=== PATIENT | female | born 1980 | race Caucasian/White ===

== ENCOUNTER → 2016-09-03 12:12 | Outpatient (CLI) | payer OTHER, SELFPAY ==
--- NOTE | 2017-09-04 | FLU_PTH ---
PATIENT: LORI RESENDIZ LOC: [facility] U#:[id number] AGE/SX: 45/F ROOM: RE09/03/[address]: Dr. Radha Hill MD : 1980 BED: DIS: SPEC #: [id number] RECD: 09/04/17 14:22 STATUS: AUDELIA BAHMAN #: [id number] JULIAN: 09/04/17 00:[address]: Radha Hill DEPT: CYTOLOGY RECD BY: Gene Rich ENTERED: 09/04/17 14:23 SP TYPE: Fluid OTHR DR: Dr. Richie Dhaliwal DO Tissues: A - Axillary lymph node, NOS B - Axillary lymph node, NOS Procedures: Pap Stain (control) Special Stain Group II Special Stain Group I Surgery Specimen Level IV AFB Stain (control) GMS Stain (control) Cell Block Cytospin Fluid HEADER OPERATION: Ultrasound-guided FNA, left axillary lymph node PRE-OP DIAGNOSIS: Abnormal mammogram TISSUE SUBMITTED: A - FNA, left axillary lymph node, fluid for cytology, B ? 4 slides DIAGNOSIS CYTOLOGY A. Left axillary lymph node, fluid, FNA (cytospin and cell block): Lymph node tissue with focal non-necrotizing granuloma formation. Special stains for acid fast bacilli and fungi are negative for organisms; matched controls are appropriate. B. Left axillary lymph node, ultrasound-guided FNA (smears): Polymorphous population of lymphocytes with focal area of non-necrotizing granuloma formation. See comment. SJ:rg 09/05/17 COMMENT B. Clinical correlation and appropriate follow up are necessary. CYTOLOGY STUDY Slides are reviewed. CYTOLOGY GROSS A. Received is 15 ml of brown, cloudy fluid labeled with the patient's name and and designated per the requisition as left axillary lymph node. Submitted for cytology preparation including cell block. B. Received are four smears labeled with the patient's name and designated per the requisition as left axillary lymph node. Submitted for staining. / 09/04/17 TC:3 CPT: 10940, 72799, 03908, 23024 x2
== END ==
PROVIDERS: Family Provider Student in an Organized Health Care Education/Training Program; PCP Student in an Organized Health Care Education/Training Program; Visit Provider Surgery
DX: R69 Illness, unspecified (principal)
CPT/HCPCS: 88108; 88305; 88312; 88313

== ENCOUNTER → 2023-05-27 | Outpatient (CLI) | payer OTHER, SELFPAY ==
--- NOTE | 2023-05-27 16:23 | RAD_ITS ---
INDICATION: PAIN EXAMINATION/TECHNIQUE: X-RAY - LEFT XR Foot Min 3 Views COMPARISON: None. FINDINGS: 3 views of the left foot were obtained. No acute fracture is identified. No dislocation. RAD/Foot min 3 Views IMPRESSION: No acute fracture identified. Electronically Signed: José Miguel Blue MD at 1:00 EST ,
== END | disposition home or self-care (01) ==
LOC: MTRAD 16:22
PROVIDERS: PCP Student in an Organized Health Care Education/Training Program; Referring Provider Podiatrist; Visit Provider Podiatrist
DX: M77.42 Metatarsalgia, left foot (principal)
CPT/HCPCS: 73630